=== PATIENT | female | born 1975 | race Caucasian/White ===

== ENCOUNTER → 2017-08-19 | Outpatient (CLI) | payer OTHER ==
--- NOTE | 2017-08-19 14:16 | EXE ---
[place] [address] STRESS ECHOCARDIOGRAM Name: PATRICIA KWONG Room: [facility]#: [id number] Admission: 08/19/17 Attend Phys: Jaymie Conklin, Discharge: Date of : 79 Date of Service: 08/19/17 1416 Report #: [id number] THIS REPORT FOR: //name// APPROVED REPORT Study performed: 08/19/2017 11:17:36 Exam: Stress Echocardiogram Indication: Chest pain , Dyspnea , Palpitations Patient Location: Out-Patient Stress Nurse: Aure Quinteros RN Supervising Physician: Handy Monzon MD Status: routine Ht: 5 ft 6 in HR: 98 bpm BP: 130/71 mmHg Medical History Cardiac Risk Factors: DM, Hyperlipidemia, FHX of CAD Procedure The patient underwent an Exercise Stress Test using the Omar Protocol. Blood pressure, heart rate, and EKG were monitored. An Echocardiogram was performed by electro mechanical technician in four stages in quad fashion. At peak stress, four selected images were obtained and placed side by side with resting images for comparison. Stress Test Details Stress Test: Exercise stress testing was performed using a Omar protocol. HR Resting HR: 98 bpm Max Heart Rate (APMHR): 180 bpm Max HR Achieved: 174 bpm Target HR (85% APMHR): 153 bpm % of APMHR: 96 Recovery HR: 104 bpm HR response to stress: Normal HR response to stress BP Resting BP: 130/71 mmHg Max BP: 121/90 mmHg Recovery BP: 129/76 mmHg ECG Resting ECG: Sinus Rhythm, normal EKG Stress ECG: [place] [address] STRESS ECHOCARDIOGRAM Name: PATRICIA KWONG Room: [facility]#: [id number] Admission: 08/19/17 Attend Phys: Jaymie Conklin, Discharge: Date of : 79 Date of Service: 08/19/17 1416 Report #: [id number] ST Change: Upsloping ST depression Maximum ST Deviation: 1.5 mm Arrhythmia: None Recovery ECG: Sinus Rhythm Recovery ST Change: Upsloping ST depression Recovery ST Deviation: 1 mm Recovery Arrhythmia: None Clinical Reason for Termination: Dyspnea Stress Symptoms: Dyspnea Exercise duration: 5 min 18 sec Highest Stage Achieved: Stage 2: 2.5 mph at 12% grade. Exercise capacity: 7.05 METs The patient reported dyspnea but no chest pain with exercise. The patient's exercise capacity was limited. Stress ECG Conclusion The baseline 12-lead electrocardiogram shows sinus rhythm without significant ST or T wave abnormality. With exercise the patient developed upsloping ST segment depression in the inferolateral leads of approximately 1-1/2 mm that persists 9 minutes into recovery. There were no stress-induced arrhythmias. Pre-Stress Echo The resting Echocardiogram showed normal left ventricular contractility with an estimated Ejection Fraction of about 55-60%. Post-Stress Echo The stress Echocardiogram showed normal left ventricular contractility with an estimated Ejection Fraction of about >70%. Clinical The patient's exercise capacity was limited. He did note dyspnea but no chest pain. Conclusion Clinical Response: Equivocal Exercise Capacity: Below Average Stress ECG Response: Equivocal Stress Echo Images: Non-ischemic Electrocardiographic images show upsloping ST segment depression with exercise suggestive of but not diagnostic for ischemia. Stress echocardiographic images showed normal augmentation in left ventricular systolic function with exercise stress. There was no evidence of stress-[place] [address] STRESS ECHOCARDIOGRAM Name: PATRICIA KWONG Room: [facility]#: [id number] Admission: 08/19/17 Attend Phys: Jaymie Conkiln, Discharge: Date of : 79 Date of Service: 08/19/17 1416 Report #: [id number] In light of echocardiographic findings the electrocardiographic findings are felt to be a false-positive. Should stress testing be required in the future would recommend nonexercise stress modality with myocardial perfusion imaging. Other Information Study Quality: Fair <Conclusion> Electrocardiographic images show upsloping ST segment depression with exercise suggestive of but not diagnostic for ischemia. Stress echocardiographic images showed normal augmentation in left ventricular systolic function with exercise stress. There was no evidence of stress-induced wall motion abnormalities. In light of echocardiographic findings the electrocardiographic findings are felt to be a false-positive. Should stress testing be required in the future would recommend nonexercise stress modality with myocardial perfusion imaging. <ELECTRONICALLY SIGNED> By: Handy Monzon MD, FACC 08/19/17 1416 1416 1416 Handy Monzon MD, FACC /INF
== END ==
LOC: M.CRD 07-04 13:00
DX: R07.9 Chest pain, unspecified (principal); R06.00 Dyspnea, unspecified; R00.2 Palpitations

== ENCOUNTER 2018-12-19 18:45 | Emergency (ER) | payer OTHER ==
[~2018-12-19] VITALS: Ht 167.6 cm; Wt 136.1 kg
[2018-12-19 20:02] LABS: ABSOLUTE BASOPHILS 0.2 thou/uL (0.0-0.2); ABSOLUTE EOSINOPHILS 0.1 thou/uL (0.0-0.7); ABSOLUTE LYMPHOCYTES 3.7 thou/uL (0.8-5.3); ABSOLUTE MONOCYTES 1.3 thou/uL (0.0-1.2); ABSOLUTE NEUTROPHILS 10.5 thou/uL (1.6-8.1); BASOPHILS 1.2 %; EOSINOPHILS 0.6 %; HEMATOCRIT 37.3 % (37.0-47.0); HEMOGLOBIN 12.3 gm/dL (12.0-15.0); LYMPHOCYTES 23.2 %; MCH 27.7 pg (26.0-34.0); MCHC 32.9 g/dL (28.0-37.0); MCV 84.3 fL (80.0-100.0); MONOCYTES 8.1 %; MPV 7.7 fl. (7.2-11.1); NUCLEATED RBCS 0 /100WBC; PLATELET COUNT* 341 thou/uL (150-400); POLYS 66.9 %; RBC 4.43 mil/uL (4.20-5.00); RDW-CV 14.5 % (10.5-14.5); WBC 15.7 thou/uL (4.0-11.0)
[2018-12-19 20:10] LABS: ANION GAP 12 mmol/L (7-16); BUN 12 mg/dL (7-18); CALCIUM 9.8 mg/dL (8.5-10.1); CHLORIDE 105 mmol/L (98-107); CO2 23 mmol/L (21-32); CREATININE 0.8 mg/dL (0.6-1.3); GLUCOSE 131 mg/dL (70-99); POTASSIUM 3.8 mmol/L (3.5-5.1); SODIUM 140 mmol/L (136-145)
[2018-12-19 20:13] LABS: APTT 29.4 Seconds (25.0-31.3); INR 0.9; PROTIME 9.7 Seconds (9.20-11.50)
[2018-12-19 20:35] LABS: ALKALINE PHOSPHATASE 75 U/L (46-116); SGOT 10 U/L (15-37); SGPT 17 U/L (30-65); TOTAL PROTEIN 7.8 g/dL (6.4-8.2)
[2018-12-19 20:36] LABS: TOTAL BILIRUBIN < 0.1 mg/dL (<0.1-1.0)
[2018-12-19 20:53] LABS: URINE BILIRUBIN NEGATIVE (Negative); URINE BLOOD 3+ (Negative); URINE CLARITY CLEAR; URINE COLOR YELLOW; URINE GLUCOSE-RANDOM NEGATIVE (Negative); URINE KETONES NEGATIVE (Negative); URINE LEUKOCYTES-REFLEX NEGATIVE (Negative); URINE NITRITE-REFLEX NEGATIVE (Negative); URINE PROTEIN NEGATIVE (Negative); URINE SPECIFIC GRAVITY 1.015 (1.005-1.030); URINE UROBILINOGEN 0.2 E.U./dl (0.2-1.0)
[2018-12-19 21:02] LABS: AMORPHOUS URATES Moderate /LPF (None Seen); BACTERIA-REFLEX 1-9 Few /HPF (None Seen); CASTS None Seen /LPF (None Seen); MUCUS 4-6 Moderate strn/LPF (None Seen); SQUAMOUS 0-3 Few /LPF (0-3); URINE RBC >20 Many /HPF (0-2); URINE WBC-REFLEX None Seen /HPF (0-5)
[2018-12-19 21:32] VITALS: BP 122/75
== END 2018-12-19 21:32 | disposition home or self-care (01) ==
LOC: M.ERS 18:45
PROVIDERS: Physician Assistant
DX: D25.9 Leiomyoma of uterus, unspecified (principal); Z88.1 Allergy status to other antibiotic agents; Z88.8 Allergy status to other drugs, medicaments and biological substances; Z90.49 Acquired absence of other specified parts of digestive tract

== ENCOUNTER 2018-12-28 10:53 | Emergency (ER) | payer OTHER ==
[~2018-12-28] VITALS: Ht 167.6 cm; Wt 139.3 kg
[2018-12-28 12:21] LABS: URINE BILIRUBIN NEGATIVE (Negative); URINE BLOOD 3+ (Negative); URINE CLARITY SL CLOUDY; URINE COLOR YELLOW; URINE GLUCOSE-RANDOM NEGATIVE (Negative); URINE KETONES NEGATIVE (Negative); URINE LEUKOCYTES-REFLEX NEGATIVE (Negative); URINE NITRITE-REFLEX NEGATIVE (Negative); URINE PROTEIN TRACE (Negative); URINE SPECIFIC GRAVITY >= 1.030 (1.005-1.030); URINE UROBILINOGEN 0.2 E.U./dl (0.2-1.0)
[2018-12-28 12:34] LABS: SQUAMOUS >10 Many /LPF (0-3)
[2018-12-28 12:36] LABS: BACTERIA-REFLEX 1-9 Few /HPF (None Seen); CASTS None Seen /LPF (None Seen); MUCUS None Seen strn/LPF (None Seen); URINE RBC >20 Many /HPF (0-2); URINE WBC-REFLEX 0-5 Rare /HPF (0-5)
[2018-12-28 12:37] LABS: CRYSTALS None Seen /LPF (None Seen)
[2018-12-28 12:43] LABS: ABSOLUTE BASOPHILS 0.2 thou/uL (0.0-0.2); ABSOLUTE LYMPHOCYTES 2.2 thou/uL (0.8-5.3); BASOPHILS 1.3 %; EOSINOPHILS 0.3 %; HEMATOCRIT 35.9 % (37.0-47.0); LYMPHOCYTES 17.7 %; MCH 28.2 pg (26.0-34.0); MCHC 33.4 g/dL (28.0-37.0); MCV 84.5 fL (80.0-100.0); MONOCYTES 8.1 %; MPV 7.6 fl. (7.2-11.1); NUCLEATED RBCS 0 /100WBC; PLATELET COUNT* 378 thou/uL (150-400); POLYS 72.6 %; RBC 4.25 mil/uL (4.20-5.00); RDW-CV 14.4 % (10.5-14.5); WBC 12.4 thou/uL (4.0-11.0)
[2018-12-28 12:44] LABS: ANION GAP 9 mmol/L (7-16); BUN 10 mg/dL (7-18); CALCIUM 9.5 mg/dL (8.5-10.1); CHLORIDE 105 mmol/L (98-107); CO2 26 mmol/L (21-32); CREATININE 0.7 mg/dL (0.6-1.3); GLUCOSE 137 mg/dL (70-99); SODIUM 140 mmol/L (136-145)
[2018-12-28 12:53] LABS: ALBUMIN 2.9 g/dL (3.4-5.0); ALKALINE PHOSPHATASE 83 U/L (46-116); SGOT 9 U/L (15-37); SGPT 18 U/L (30-65); TOTAL BILIRUBIN 0.2 mg/dL (<0.1-1.0); TOTAL PROTEIN 7.6 g/dL (6.4-8.2); TROPONIN-I LEVEL <0.06 ng/mL (<0.06)
[2018-12-28 18:11] VITALS: BP 126/61
--- NOTE | 2018-12-29 09:28 | EKG ---
[place] [address] ELECTROCARDIOGRAM REPORT Name: PATRICIA KWONG Room: [facility]#: [id number] Admission: 12/28/18 Attend Phys: Discharge: 12/28/18 Date of : 79 Report #: [id number] THIS REPORT FOR: //name// [facility] ED Test Date: 2018-12-28 Test Time: 10:57:31 Pat Name: PATRICIA KWONG Department: Room: Gender: F [employer] General Manager: INGRID : 1975 Requested By: Lu Pagan Order Number: [id number] MD: Handy Monzon Measurements Intervals [place] Rate: 114 P: 52 AK: 149 QRS: 10 QRSD: 90 T: 6 QT: 318 QTc: 438 Interpretive Statements Sinus tachycardia Left ventricular hypertrophy Borderline T abnormalities, anterior leads No previous ECG available for comparison Electronically Signed On 12-29-2018 9:27:57 CDT by Handy Monzon [email or web address] <ELECTRONICALLY SIGNED> By: Handy Monzon MD, [facility] 12/29/18 0927 1057 1057 Handy Monzon MD, FACC /EPI
== END 2018-12-28 18:12 | disposition home or self-care (01) ==
LOC: M.ERS 10:53
PROVIDERS: Personal Emergency Response Attendant
DX: R00.2 Palpitations (principal); Z98.84 Bariatric surgery status; Z98.890 Other specified postprocedural states; Z88.1 Allergy status to other antibiotic agents